=== PATIENT | male | born 1950 | race Caucasian/White ===

== ENCOUNTER 2016-11-28 07:46 | Day surgery (SDC) | payer OTHER, BC ==
[~2016-11-28] VITALS: Ht 182.9 cm; Wt 113.0 kg
[~2016-11-28 07:46] MED LIST: CEFAZOLIN 1000MG/55 ML D5W IV SCH; CEFAZOLIN 2000 MG/60 ML D5W IV SCH; D5W AND 1/4NSS 1000 ML IV SCH
[2016-11-28 08:10] VITALS: BP 111/53; PULSE 57; TEMP 36.7; O2SAT 98; Ht 182.9 cm; Wt 113.0 kg
[2016-11-28] MEDS ORDERED: ROPI0.25 PO (09:07)
[2016-11-28] MEDS ORDERED: B-CO1CAP17 PO (09:07)
[2016-11-28] MEDS ORDERED: CINA90TA PO (09:07)
[2016-11-28] MEDS ORDERED: SEVE800T7 PO (09:07)
[2016-11-28] MEDS ORDERED: LYR50 PO (09:07)
[2016-11-28] MEDS ORDERED: ATOR10TA82 PO (09:07)
[2016-11-28] MEDS ORDERED: CEFD1CAP14 PO (09:07)
[2016-11-28] MEDS ORDERED: CALCIUM VITAMIN D PO (09:07)
[2016-11-28] MEDS ORDERED: ASPI325T45 PO (09:07)
[2016-11-28] MEDS ORDERED: METO25TA3 PO (09:07)
[2016-11-28] MEDS ORDERED: MULT-506 PO (09:07)
[2016-11-28] MEDS ORDERED: LENA2.5C PEG (09:07)
[2016-11-28] MEDS ORDERED: ALLO100T PO (09:07)
--- NOTE | 2016-11-28 09:12 | History and Physical ---
History & Physical Date Nov 28, 2016. Chief Complaint Malfunctioning fistula History of Present Illness The patient is a 66 year old male with history of multiple myeloma, now in remission, and end-stage renal disease (on dialysis) and on the transplant list. He was followed by Dr. Shalini Shea at the [facility] for his access issues for some time. Dr. Shea has since left the institution and his new vascular surgeon is Dr. Summers. Mr. Costello is status post a left radiocephalic AV fistula. This was used for several years but subsequently thrombosed. He more recently had placement of a left brachiocephalic AV fistula. This has undergone balloon angioplasty of the anastomosis, as well of the outflow veins several times by Dr. Shea. He is here today because he has had increased venous pressure and some clotting issues on his recent dialysis runs. He states that several weeks ago he had some issues with arm pain and discomfort in the level of his antecubital crease but really this has completely resolved. His only active issues are again this issue with high venous pressures and bleeding on his dialysis runs. Otherwise, he remains on Revlimid therapy and again is on the transplant list. Vitals Vital Signs Past 12 Hours Date Time Temp Pulse Resp B/P Pulse Ox O2 Delivery O2 Flow Rate FiO2 11/28/16 08:10 36.7 57 18 111/53 98 Room Air Allergies Coded Allergies: Ciprofloxacin (Verified Adverse Reaction, Unknown, flu symptoms, 11/28/16) Home Medications Scheduled Allopurinol (Zyloprim), 1 TAB PO DAILY Aspirin (Aspirin), 325 MG PO DAILY Atorvastatin (Lipitor), 10 MG PO DAILY Cefdinir (Omnicef), 300 MG PO DAILY Cinecalcet (Sensipar), 90 MG PO DAILY Lenalidomide (Revlimid), 5 MG PEG DAILY Metoprolol Succinate (Toprol Xl), 1 TAB PO DAILY Multivitamin (Multivitamin), 1 TAB PO DAILY Pregabalin (Lyrica), 100 MG PO TID Ropinirole (Requip), 2 TAB PO DIRECTED Sevelamer Carbonate (Renvela), 2 TAB PO TID Vitamin B Cmplx/Vitc/Folic Ac (Nephrocaps), 1 CAP PO DAILY [calcium vitamin D], 600 MG PO BID Surgical / Medical History Hx Cardiac Surgery: No Hx Abdominal Surgery: No Hx Cancer Surgery: No Hx Thoracic Surgery: No Hx Orthopedic: No Hx Urinary Tract Surgery: No HX Other Surgery: No Past Medical/Surgical History: Hypertension, Kidney Disease Social History Smoking Status: Never Smoker Hx Alcohol Use - Type & Amnt: No Hx Substance Use -Type & Amnt: No Review of Systems Constitutional: No chills, No diaphoresis, No fatigue, No fever, No malaise, No problem reported, No sweats, No weakness, No weight gain, No weight loss Respiratory: No MARVIN, No PND, No cough, No cyanosis, No dyspnea, No hemoptysis, No orthopnea, No problem reported, No short of breath, No sputum production, No stridor, No wheezing Cardiovascular: No chest pain, No chest pressure, No chest tightness, No cyanosis, No diaphoresis, No edema, No intermittent claudication, No lightheadedness, No mumur, No orthopnea, No palpitations, No paroxysmal nocturnal dyspnea, No problem reported, No syncope Gastrointestinal: No abdominal pain, No anorexia, No appetite changes, No belching, No constipation, No diarrhea, No dysphagia, No flatulence, No food intolerance, No heartburn, No hematemesis, No hematochezia, No hemorrhoids, No indigestion, No nausea, No problem reported, No rectal bleeding, No stool changes, No vomiting Musculoskeletal: No back pain, No gout, No joint pain, No joint swelling, No muscle pain, No muscle stiffness, No muscle weakness, No neck pain, No problem reported Physical Exam Constitutional: General Apperance: heathly-appearing, well-nourished, well-developed Level of Distress: NAD Ambulation: ambulating normally Psychiatric: Mental Status: active & alert, normal mood, normal affect Orientation: oriented except where noted, to time, to place, to person Memory: recent memory normal, remote memory normal Lungs: Auscultation: breath sounds normal Cardiovascular: Heart Auscultation: RRR Peripheral Pulses: Radial Pulse: normal on the left, normal on the right Femoral Pulse: normal on the left, normal on the right Abdomen: Inspection & Palpation: soft Musculoskeletal: normal Extremities: Upper Right: no cyanosis, no edema, no varicosities, no palpable cord, no clubbing, no ulcers, no mottling Upper Left: no cyanosis, no edema, no varicosities, no palpable cord, no clubbing, no ulcers, no mottling Lower Right: no cyanosis, no edema, no varicosities, no palpable cord, no clubbing, no ulcers, no mottling Lower Left: no cyanosis, no edema, no varicosities, no palpable cord, no clubbing, no ulcers, no mottling Assessment and Plan Imp: Malfunctioning fistula Plan: Patient admitted for a fistulogram with possible intervention. I have discussed the risks options and benefits of the procedure with the patient. The patient understands the risks options and benefits and agrees to the procedure.
--- NOTE | 2016-11-28 09:13 | Procedure Note ---
Pre-Mod Sedation Assessment General Date of Moderate Sedation: Nov 28, 2016. Vital Signs: Vital Signs Past 12 Hours Date Time Temp Pulse Resp B/P Pulse Ox O2 Delivery O2 Flow Rate FiO2 11/28/16 08:10 36.7 57 18 111/53 98 Room Air Pre-Sedation Airway Assessment Oral Cavity: WNL Smoking Status: Never Smoker Mallampati Classification: Class I ASA Classification: Class II Notes The planned sedation has been discussed with the patient and consent obtained. I have identified the patient, determined the appropriateness of sedation and have assessed the patient immediately prior to the procedure. All medicine(s) and interventions are by my order.
[2016-11-28] MEDS ORDERED: MIDAZOLAM HCL 1 MG/ML 2ML VIAL ONE (09:54)
[2016-11-28] MEDS ORDERED: FENTANYL CITRATE INJ 50 MCG/1 ML 2 ML VIAL ONE (09:54)
[2016-11-28] MEDS ORDERED: LIDOCAINE HCL 1% 20 ML VIAL INJ ONE (10:30)
[2016-11-28] MEDS ORDERED: FENTANYL CITRATE INJ 50 MCG/1 ML 2 ML VIAL IV ONE (10:34)
[2016-11-28] MEDS ORDERED: MIDAZOLAM HCL 1 MG/ML 2ML VIAL IV ONE (10:34)
[2016-11-28] MEDS ORDERED: OPTIRAY 300 IV ONE (10:50)
--- NOTE | 2016-11-28 10:53 | [facility] Post Operative Brief Note ---
Immediate Operative Summary Operative Date Nov 28, 2016. Pre-Operative Diagnosis Malfunctioning Fistula Post-Operative Diagnosis Same Procedure(s) Performed Fistulogram, Percutaneous Transluminal Angioplasty Venous, Moderate Concious Sedation [address] Summers Stuffed Casing Tier Surgeon(s) None Estimated Blood Loss 5 ml Findings restenosis of fistula upper arm, min residual Specimens NONE Anesthesia Local with conscious sedaton Complication(s) None Disposition
--- NOTE | 2016-11-28 10:53 | Procedure Note ---
Post-Moderate Sedation Plan General Date of Moderate Sedation Nov 28, 2016. Vital Signs: Vital Signs Past 12 Hours Date Time Temp Pulse Resp B/P Pulse Ox O2 Delivery O2 Flow Rate FiO2 11/28/16 08:10 36.7 57 18 111/53 98 Room Air Review - Discharge Plan Post Moderate Sedation Plan: On clinical assessment, the patient appears to have tolerated the conscious sedation without complications. Patient is recovering as anticipated. Patient will continue to be monitored by nursing and may be discharged when conscious sedation discharge criteria are met.
--- NOTE | 2016-11-28 10:54 | Discharge Instructions ---
Discharge Instructions Date of Service Nov 28, 2016. Visit Reason for Visit: Malfunctioning Arteriovenous Fistula Discharge Discharge Diagnosis / Problem: Malfunctioning fistula Discharge Goals Goal(s): Therapeutic intervention Activity Recommendations Activity Limitations: per Instructions/Follow-up section Anesthesia . Post Anesthesia Instructions: If you have had General Anesthesia or IV Sedation: * Do not drive today. * Resume driving when surgeon permits. * Do not make important decisions or sign legal documents today. * Call surgeon for: 1. Temperature elevations greater than 101 degrees F. 2. Uncontrollable pain. 3. Excessive bleeding. 4. Persistent nausea and vomiting. 5. Medication intolerance (nausea, vomiting or rash). * For nausea and vomiting use only clear liquids such as: tea, soda, bouillon until nausea subsides, then gradually increase diet as tolerated. * If you have any concerns or questions, call your surgeon's office. If physician is unavailable and it is an emergency, call 911 or go to the nearest emergency room. . Instructions / Follow-Up Instructions / Follow-Up Call [phone] with any questions or concerns. SPECIAL CARE INSTRUCTIONS: Medications: * Continue to take your medications as directed. If you have been given a prescription for Plavix, please fill it immediately and take as directed. Incision Care: * Your puncture site may have some bruising and minor swelling for about one week. * You will have a small dressing covering your puncture site. You may remove the dressing after 24 hours and shower. You may let the warm soapy water run over it, but be sure to dry the puncture site well and keep it dry. * DO NOT IMMERSE THE INCISION IN A TUB/POOL/etc. UNTIL HEALED. * Puncture sites should be kept covered with a band-aid until it begins to heal. Restrictions: * Depending on whether you leg or arm was punctured to access the arteries, you will be required to lay flat, hold your arm still, or both, for about 4 hours after the procedure to prevent bleeding. * Limit your activity for the first 48 hours. You may walk and go up and down steps. Avoid excessive bending or movement at the puncture site. Possible Complications: * Excessive Swelling - after blood flow is improved you may notice increased swelling in the lower legs. This is a normal response. This usually depends on the amount of blockages in the leg, how long they have been there prior to your procedure and how much blood flow was restored. Elevating your legs will help to improve this. Please notify our office ([phone] ) if the swelling does not go away after lying in bed overnight. * Infection/Drainage/Bleeding - Drainage or bleeding from the puncture site should be minimal. If you have excessive bleeding or drainage, call our office ([phone]) right away. * Pain - You may experience some mild pain or soreness at your puncture site. If your pain does not improve, please contact our office ([phone]). Call your doctor and seek emergent treatment if you develop: * Temperature above 101 degrees * Any fever or chills * Any redness or purulent drainage from the puncture site * Any new dusky/blue colored toes or feet with coolness or sharp or aching pain. SKIN IRRITATION: * You may experience some redness and/or swelling in the area where radiation was administered. If any skin irritation occurs, please contact your family physician. FOLLOW UP VISIT: Keep any scheduled doctor appointments. Diet Recommendations Recommended Home Diet: resume previous diet Procedures Procedures Performed: Fistulogram, Percutaneous Transluminal Angioplasty Venous, Moderate Concious Sedation 1034 to 1050 Pending Studies Studies pending at discharge: no Medical Emergencies . Who to Call and When: Medical Emergencies: If at any time you feel your situation is an emergency, please call 911 immediately. . Non-Emergent Contact Non-Emergency issues call your: Surgeon . . "Provider Documentation" section prepared by Jasen Summers.
[2016-11-28 11:00] VITALS: BP 106/56; PULSE 59; TEMP 36.7; O2SAT 98
[2016-11-28 11:30] VITALS: BP 111/60; PULSE 56; TEMP 36.7; O2SAT 99
--- NOTE | 2016-11-28 11:48 | DIAGNOSTIC IMAGING REPORT ---
DATE OF PROCEDURE: 11/28/2016 PREOPERATIVE DIAGNOSIS: Malfunctioning left upper arm fistula. POSTOPERATIVE DIAGNOSIS: Same. PROCEDURES: 1. Fistulogram, left upper arm fistula. 2. Balloon angioplasty of the venous side of the fistula. 3. Conscious sedation 16 minutes. SURGEON: Dr. Summers. ANESTHETIC: Local with conscious sedation. PROCEDURE INDICATIONS: The patient is a 66-year-old gentleman who has a left upper arm AV fistula in place which was ballooned in the past for stenosis. He has had running high venous pressures again. Fistulogram was then recommended. He understood the risks, options and benefits and agreed to have this procedure. The patient was taken to the angiogram suite and placed in supine position. After the left arm was prepped and draped in a sterile manner, local anesthetic was administered. Percutaneous puncture was then made in the proximal portion of the left upper arm fistula. This was done with micropuncture technique. The micropuncture sheath was inserted. Once this was in place, fistulogram was performed. This showed the fistula to be patent. There was stenosis seen in the upper portion of the fistula which was approximately 7 cm long. The more central veins were widely patent and with no evidence of stenosis. The micropuncture sheath was then exchanged for a 6-Armenian sheath. An 0.035 wire was inserted. Using a 6 x 6 balloon, the area of stenosis was dilated. It did have some slight residual stenosis seen throughout and this was then redilated with an 8 x 4 Conquest. This was uneventful. It dilated up nicely. There was no residual present in the area of stenosis. At that point, the sheath was then pulled, pressure was then applied. Adequate hemostasis was obtained. Once adequate hemostasis was noted, a sterile dressing was applied to the wound. The patient left the angio suite in good condition and tolerated the procedure well. He had an excellent thrill in the fistula at the end of the procedure.
== END 2016-11-28 11:45 | disposition home or self-care (01) ==
LOC: C.ACU 07:46
PROVIDERS: ATTEND Surgery Vascular Surgery
DX: C90.01 Multiple myeloma in remission (principal); I12.0 Hypertensive chronic kidney disease with stage 5 chronic kidney disease or end stage renal disease; N18.6 End stage renal disease; Z99.2 Dependence on renal dialysis; Z79.82 Long term (current) use of aspirin; Z79.899 Other long term (current) drug therapy